=== PATIENT | female | born 1985 | race Caucasian/White ===

== ENCOUNTER 2018-02-18 09:22 | Emergency (ER) | payer MEDICAID ==
[~2018-02-18] VITALS: Ht 170.2 cm; Wt 117.0 kg
[~2018-02-18 09:22] MED LIST: BICARSIM80 M1 PO; COL100 PO; FER300 PO; NOR10T PO; VITC PO; ZOF4 PO
[2018-02-18 09:31] VITALS: Ht 170.2 cm; Wt 117.0 kg
[2018-02-18 10:40] LABS: CALCIUM 8.3 mg/dL (8.5-10.1); CARBON DIOXIDE 26.5 mmol/L (21-32); CHLORIDE SERUM 107 mmol/L (98-107); CREATININE SERUM 0.6 mg/dL (0.6-1.0); GFR1 > 60 mL/min; GLUCOSE SERUM 90 mg/dL (74-106); POTASSIUM SERUM 3.8 mmol/L (3.5-5.1); SODIUM SERUM 141 mmol/L (136-145)
[2018-02-18 10:45] LABS: ALBUMIN 3.6 g/dL (3.4-5.0); ALKALINE PHOSPHATASE 83 U/L (46-116); ALT/SGPT 19 U/L (14-59); AST/SGOT 15 U/L (15-37); BILIRUBIN TOTAL 0.4 mg/dL (0.20-1.00); TOTAL PROTEIN, SERUM 7.1 g/dL (6.4-8.2)
[2018-02-18 10:51] LABS: BASOPHIL % 0.8 % (0-2); PLATELET COUNT 273 x10^3mcL (130-400)
[2018-02-18 10:55] LABS: RED CELL DISTRIBUTION WIDTH 19.7 % (11.5-14.5)
[2018-02-18 11:08] LABS: UA SPECIFIC GRAVITY 1.025 (1.005-1.035); microscopic required? YES; urine erythrocyte 2+ (NEGATIVE)
[2018-02-18 12:48] VITALS: BP 139/82
== END 2018-02-18 12:48 | disposition home or self-care (01) ==
LOC: ED 09:22
PROVIDERS: Emergency Medicine
DX: N93.8 Other specified abnormal uterine and vaginal bleeding (principal); D25.9 Leiomyoma of uterus, unspecified; D64.9 Anemia, unspecified; R11.2 Nausea with vomiting, unspecified
CPT/HCPCS: Q0092

== ENCOUNTER 2018-03-25 10:32 | Emergency (ER) | payer OTHER, MEDICAID ==
[~2018-03-25] VITALS: Ht 170.2 cm; Wt 118.5 kg
[2018-03-25 10:42] VITALS: Ht 170.2 cm; Wt 118.5 kg
[2018-03-25 13:34] VITALS: BP 129/52
== END 2018-03-25 13:30 | disposition home or self-care (01) ==
LOC: ED 10:32
DX: S83.92XA Sprain of unspecified site of left knee, initial encounter (principal); X58.XXXA Exposure to other specified factors, initial encounter; Y93.89 Activity, other specified; Y92.89 Other specified places as the place of occurrence of the external cause; Y99.8 Other external cause status
CPT/HCPCS: Q0092

== ENCOUNTER 2019-04-07 17:12 | Emergency (ER) | payer MEDICAID ==
[~2019-04-07] VITALS: Ht 167.6 cm; Wt 121.6 kg
[2019-04-07 17:24] VITALS: Ht 167.6 cm; Wt 121.6 kg
[2019-04-07 18:15] LABS: BASOPHIL % 0.5 % (0-2); PLATELET COUNT 244 x10^3mcL (130-400); RED CELL DISTRIBUTION WIDTH 19.5 % (11.5-14.5)
[2019-04-07 18:17] LABS: CALCIUM 8.8 mg/dL (8.5-10.1); CARBON DIOXIDE 27.6 mmol/L (21-32); CHLORIDE SERUM 108 mmol/L (98-107); CREATININE SERUM 0.8 mg/dL (0.6-1.0); GFR1 > 60 mL/min; GLUCOSE SERUM 112 mg/dL (74-106); POTASSIUM SERUM 3.3 mmol/L (3.5-5.1); SODIUM SERUM 145 mmol/L (136-145)
[2019-04-07 18:21] LABS: ALBUMIN 3.7 g/dL (3.4-5.0); ALKALINE PHOSPHATASE 77 U/L (46-116); ALT/SGPT 18 U/L (14-59); AST/SGOT 8 U/L (15-37); BILIRUBIN TOTAL 0.47 mg/dL (0.20-1.00); MAGNESIUM 2.1 mg/dL (1.8-2.4); TOTAL PROTEIN, SERUM 7.6 g/dL (6.4-8.2)
[2019-04-07 19:04] VITALS: BP 142/68
== END 2019-04-07 19:04 | disposition home or self-care (01) ==
LOC: ED 17:12
PROVIDERS: Emergency Medicine
DX: M54.16 Radiculopathy, lumbar region (principal); M54.30 Sciatica, unspecified side; R60.9 Edema, unspecified
CPT/HCPCS: 36415; 83880; J1885

== ENCOUNTER 2019-09-25 16:17 | Emergency (ER) | payer MEDICAID ==
[~2019-09-25] VITALS: Ht 170.2 cm; Wt 124.3 kg
[2019-09-25 16:38] VITALS: Ht 170.2 cm; Wt 124.3 kg
[2019-09-25 17:24] VITALS: BP 144/88
== END 2019-09-25 17:24 | disposition home or self-care (01) ==
LOC: ED 16:17
DX: M75.102 Unspecified rotator cuff tear or rupture of left shoulder, not specified as traumatic (principal); Z87.19 Personal history of other diseases of the digestive system; X50.0XXA Overexertion from strenuous movement or load, initial encounter; Y93.89 Activity, other specified; Y92.89 Other specified places as the place of occurrence of the external cause; Y99.8 Other external cause status
CPT/HCPCS: J1885

== ENCOUNTER 2020-05-01 18:57 | Emergency (ER) | payer OTHER ==
[~2020-05-01] VITALS: Ht 170.2 cm; Wt 108.9 kg
[2020-05-01 19:11] VITALS: Ht 170.2 cm; Wt 108.9 kg
[2020-05-01 21:10] VITALS: BP 121/64
== END 2020-05-01 21:10 | disposition home or self-care (01) ==
LOC: ED 18:57
DX: S83.92XA Sprain of unspecified site of left knee, initial encounter (principal); M17.12 Unilateral primary osteoarthritis, left knee; Z87.19 Personal history of other diseases of the digestive system; X58.XXXA Exposure to other specified factors, initial encounter; Y93.01 Activity, walking, marching and hiking; Y92.89 Other specified places as the place of occurrence of the external cause; Y99.8 Other external cause status
CPT/HCPCS: J1885